=== PATIENT | male | born 1995 | race African-American/Black ===

== ENCOUNTER 2018-11-10 21:14 | Emergency (ER) | payer SELFPAY ==
--- NOTE | 2018-11-10 21:22 | PDOC ---
Rapid Medical Evaluation Time Seen by Provider: 11/10/18 21:20 Medical Evaluation: 11/10/18 21:20 I have performed a brief in-person evaluation of this patient. The patient presents with a chief complaint of: right sided facial pain with earache. Pertinent physical exam findings: No swelling noted. Facial symmetry present. I have ordered the following: nothing The patient will proceed to the ED for further evaluation. Discharge Disposition - Diagnosis Facial pain - Referrals - Patient Instructions - Post Discharge Activity
[2018-11-10 21:45] VITALS: BP 148/80; PULSE 68; TEMP 98.4; BMI 24.7
--- NOTE | 2018-11-10 22:14 | PDOC ---
History of Present Illness - General Chief Complaint: Allergic Reaction Stated Complaint: SWOLLEN TO FACE Time Seen by Provider: 11/10/18 21:20 - History of Present Illness Initial Comments: 11/10/18 22:11 23-year-old male presents for evaluation of right ear pain and congestion times one day no systemic symptoms. Past History - Past Medical History Allergies/Adverse Reactions: Allergies Allergy/AdvReac Type Severity Reaction Status Date / Time Penicillins Allergy Severe Swelling Verified 11/10/18 21:45 Home Medications: Ambulatory Orders Ciprofloxacin HCl/Dexameth [Ciprodex Otic Suspension] 4 drop AD BID 7 Days #1 bottle 11/10/18 Asthma: Yes COPD: No - Suicide/Smoking/Psychosocial Hx Smoking History: Never smoked Have you smoked in the past 12 months: No Information on smoking cessation initiated: No Hx Alcohol Use: No Drug/Substance Use Hx: No Review of Systems - Review of Systems Constitutional: No: Fever HEENTM: Yes: Ear Pain, Nose Congestion *Physical Exam - Vital Signs Last Vital Signs Temp Pulse Resp BP Pulse Ox 98.4 F 68 18 148/80 100 11/10/18 21:20 11/10/18 21:20 11/10/18 21:20 11/10/18 21:20 11/10/18 21:20 - Physical Exam Comments: 11/10/18 22:11 HEAD: NC/AT EYES: Conjuntiva clear Ears: Left ear canal and tympanic membrane are normal. Right ear canal is erythemic with purulent material tympanic membrane is mildly erythematous without retraction NOSE: No d/c THROAT: Moist mucous membrances, oral pharanx clear, uvula midline NECK: Supple without adenopathy CARDIAC: S1 S2 LUNGS: CTA Full and Equal breath sounds ABDOMEN: Soft NT ND MS: Full ROM in all joints without edema NEUROLOGIC: No gross sensory or motor deficits, NVID SKIN: Normal color and temperature no lesions or rashes Medical Decision Making - Medical Decision Making 11/10/18 22:11 Otic Cipro for otitis externa follow-up with ENT *DC/Admit/Observation/Transfer Diagnosis at time of Disposition: Otitis externa Diagnosis at time of Disposition: (Ruled Out): Facial pain - Discharge Dispostion Disposition: HOME Condition at time of disposition: Stable Decision to Admit order: No - Prescriptions Prescriptions: Ciprofloxacin HCl/Dexameth [Ciprodex Otic Suspension] 4 drop AD BID 7 Days #1 bottle - Referrals Referrals: Oniel Lowe MD [Primary Care Provider] - Aubrey Hinkle MD [Staff Physician] - - Patient Instructions Printed Discharge Instructions: Otitis Externa, DI for Otitis Externa Additional Instructions: Tylenol and Motrin as directed for pain. Return to the emergency room for worsening symptoms. Follow-up with ear nose and throat doctor in 1-2 days for further evaluation and treatment options please use the antibiotic drops as directed. - Post Discharge Activity
== END 2018-11-10 22:17 | disposition home or self-care (01) ==
LOC: JERFT 21:14
DX: H60.501 Unspecified acute noninfective otitis externa, right ear (principal)
CPT/HCPCS: 99281-25

== ENCOUNTER 2019-01-05 15:24 | Emergency (ER) | payer SELFPAY | END 2019-01-05 17:41 | disposition home or self-care (01) | LOC: JERFT 15:24 ==

== ENCOUNTER 2019-03-13 13:55 | Emergency (ER) | payer OTHER | END 2019-03-13 15:09 | disposition home or self-care (01) | LOC: JERFT 13:55 ==

== ENCOUNTER 2019-04-26 12:00 | Emergency (ER) | payer SELFPAY ==
[2019-04-26 12:05] VITALS: BP 129/93; PULSE 80; TEMP 98.4; BMI 25.7
[2019-04-26] MEDS ORDERED: KETOROLAC TROMETHAMINE 30 MG/1 ML VIAL IM ONE (14:08)
[2019-04-26] MEDS ORDERED: KETOROLAC TROMETHAMINE 30 MG/1 ML VIAL ONE (14:11)
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
== END 2019-04-26 14:48 | disposition home or self-care (01) ==
LOC: JERFT 12:00
PROC: 3E0233Z Introduction of Anti-inflammatory into Muscle, Percutaneous Approach (ICD-10-PCS; principal; 2019-04-26)
DX: S09.93XA Unspecified injury of face, initial encounter (principal); R51 Headache; W10.8XXA Fall (on) (from) other stairs and steps, initial encounter; Y93.89 Activity, other specified; Y92.038 Other place in apartment as the place of occurrence of the external cause; Y99.8 Other external cause status; Z88.0 Allergy status to penicillin
CPT/HCPCS: 99281-25

== ENCOUNTER 2022-02-17 03:54 | Emergency (ER) | payer OTHER ==
[2022-02-17 04:35] VITALS: PULSE 87; TEMP 98.1; BMI 26.4
[2022-02-17] MEDS ORDERED: MECLIZINE HCL 12.5 MG TABLET PO ONE (04:53)
[2022-02-17] MEDS ORDERED: HYDROCHLOROTHIAZIDE 25 MG TABLET (FP) PO ONE (04:53)
[2022-02-17] MEDS ORDERED: HYDROCHLOROTHIAZIDE 25 MG TABLET (FP) ONE (05:12)
[2022-02-17] MEDS ORDERED: MECLIZINE HCL 12.5 MG TABLET ONE (05:12)
[2022-02-17 05:48] LABS: BASO % 0.1 % (0-2.0); EOS % 0.3 % (0-4.5); HEMATOCRIT 43.7 % (35.4-49); HEMOGLOBIN 14.6 GM/dL (11.7-16.9); LYMPH % 13.7 % (8-40); MCH 27.9 pg (25.7-33.7); MCHC 33.5 g/dl (32.0-35.9); MEAN CELL VOLUME 83.4 fl (80-96); MEAN PLT VOLUME 8.5 fl (7.5-11.1); MONO % 4.5 % (3.8-10.2); NEUT % 81.4 % (42.8-82.8); PLATELET COUNT 316 10^3/uL (134-434); RBC 5.24 M/mm3 (4.00-5.60); RDW 13.1 % (11.9-15.9); WHITE BLOOD COUNT 13.9 K/mm3 (4.0-10.0)
[2022-02-17 06:09] LABS: CALCIUM 8.9 mg/dL (8.5-10.1)
[2022-02-17 06:10] LABS: BLOOD UREA NITROGEN 13.2 mg/dL (7-18)
[2022-02-17 06:13] LABS: CREATININE 0.9 mg/dL (0.55-1.3)
[2022-02-17 06:14] LABS: BILIRUBIN,TOTAL 0.4 mg/dL (0.2-1); TOT PROT 7.8 g/dl (6.4-8.2)
[2022-02-17 06:45] VITALS: BP 138/90
== END 2022-02-17 08:05 | disposition home or self-care (01) ==
LOC: JER 03:54
DX: R42 Dizziness and giddiness (principal); I10 Essential (primary) hypertension
CPT/HCPCS: 36415; 70450-TC; 71046-TC-FY; 80053; 84484; 85025; 93005; 93010; 99284-25

== ENCOUNTER 2022-07-26 09:38 | Emergency (ER) | payer OTHER ==
[2022-07-26 10:09] VITALS: BP 161/114; PULSE 102; RESP 18; TEMP 98.7; BMI 26.4
[2022-07-26] MEDS ORDERED: DEXAMETHASONE SOD PHOSPHATE 10 MG/1 ML VIAL PO ONE (11:48)
[2022-07-26] MEDS ORDERED: DEXAMETHASONE SOD PHOSPHATE 10 MG/1 ML VIAL ONE (12:28)
== END 2022-07-26 12:32 | disposition home or self-care (01) ==
LOC: JER 09:38
DX: J09.X2 Influenza due to identified novel influenza A virus with other respiratory manifestations (principal); R05.1 Acute cough; J02.9 Acute pharyngitis, unspecified; R68.83 Chills (without fever)
CPT/HCPCS: 0241U-QW; 99283-25; J1100